=== PATIENT | female | born 1960 | race Hispanic/Latino ===

== ENCOUNTER → 2020-12-29 | Day surgery (SDC) | payer MEDICARE, BC ==
[~2020-12-29] MED LIST: ASPIRIN81 MG PO; ATORVASTATIN CA20 MG PO; BENICAR HCT 401 EACH PO; CLONIDINE HCL0.1 MG PO; CYCLOBENZAPRINE10 MG PO; FEROSUL325 MG PO; GLYBURIDE-METF1 EAC1 PO; ISOSORBIDE MONO30 MG PO; JANUVIA100 MG PO; METOPROLOL TART50 MG PO; NITROGLYCERIN0.4 MG SL; OR PHACO EYE KIT ONE; OZEMPIC1 MG/0.75 SC; PREOP PHACO EYE KIT ONE; ULTRAM50 MG PO; VOLTAREN-XR100 MG PO
[2020-12-29 13:50] VITALS: BP 106/62
== END | disposition home or self-care (01) ==
LOC: OR 11:45
PROVIDERS: ATTEND Ophthalmology
DX: H25.11 Age-related nuclear cataract, right eye (principal); I25.10 Atherosclerotic heart disease of native coronary artery without angina pectoris; K31.84 Gastroparesis; M62.49 Contracture of muscle, multiple sites; E11.65 Type 2 diabetes mellitus with hyperglycemia; I10 Essential (primary) hypertension; M19.90 Unspecified osteoarthritis, unspecified site; I69.354 Hemiplegia and hemiparesis following cerebral infarction affecting left non-dominant side; E78.5 Hyperlipidemia, unspecified; K21.9 Gastro-esophageal reflux disease without esophagitis; Z88.8 Allergy status to other drugs, medicaments and biological substances; Z01.812 Encounter for preprocedural laboratory examination; Z20.822 Contact with and (suspected) exposure to COVID-19; Z79.82 Long term (current) use of aspirin; Z79.02 Long term (current) use of antithrombotics/antiplatelets; Z79.84 Long term (current) use of oral hypoglycemic drugs; Z79.899 Other long term (current) drug therapy; Z85.528 Personal history of other malignant neoplasm of kidney
CPT/HCPCS: 36415; 66984; 82948; U0002; V2632

== ENCOUNTER → 2021-01-12 | Day surgery (SDC) | payer MEDICARE, BC ==
[~2021-01-12] MED LIST changes: +FENTANYL CITRATE/PF 100MCG/2 ML INJ ONE; +MIDAZOLAM HCL 2 MG/2 ML VIAL ONE
[2021-01-12 12:05] VITALS: BP 141/76
== END | disposition home or self-care (01) ==
LOC: OR 15:08
PROVIDERS: ATTEND Ophthalmology
DX: H25.12 Age-related nuclear cataract, left eye (principal); Z01.812 Encounter for preprocedural laboratory examination; Z20.822 Contact with and (suspected) exposure to COVID-19; Z88.8 Allergy status to other drugs, medicaments and biological substances; E11.9 Type 2 diabetes mellitus without complications; K21.9 Gastro-esophageal reflux disease without esophagitis; I25.10 Atherosclerotic heart disease of native coronary artery without angina pectoris; I69.354 Hemiplegia and hemiparesis following cerebral infarction affecting left non-dominant side; H91.93 Unspecified hearing loss, bilateral; I10 Essential (primary) hypertension; E78.5 Hyperlipidemia, unspecified; Z79.82 Long term (current) use of aspirin
CPT/HCPCS: 36415; 66984; 82948; J2250; J3010; U0002; V2632